=== PATIENT | male | born 1965 | race Caucasian/White ===

== ENCOUNTER 2016-10-21 20:32 | Emergency (ER) | payer MEDICAID ==
[2016-10-21 20:37] VITALS: BP 136/87
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
[2016-10-22] MEDS ORDERED: HYDROCODONE/ACETAMINOPHEN 5-325 MG 6 TAB/DSPK PO PRN (00:02)
== END 2016-10-22 01:12 | disposition home or self-care (01) ==
LOC: ER 20:32
DX: S86.911A Strain of unspecified muscle(s) and tendon(s) at lower leg level, right leg, initial encounter (principal); M25.561 Pain in right knee; W19.XXXA Unspecified fall, initial encounter
CPT/HCPCS: 99283

== ENCOUNTER 2017-04-16 00:16 | Emergency (ER) | payer OTHER, MEDICAID ==
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
[2017-04-16] MEDS ORDERED: MORPHINE SULFATE IR 15 MG TABLET PO ONE (03:01)
[2017-04-16] MEDS ORDERED: LIDOCAINE 5% (700 MG) TRANSDERMAL ADH..PATCH TP ONE (03:01)
[2017-04-16] MEDS ORDERED: IBUPROFEN 600 MG TABLET PO ONE (03:01)
[2017-04-16] MEDS ORDERED: ACETAMINOPHEN 325 MG TABLET PO ONE (03:01)
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
[2017-04-16 04:15] VITALS: BP 120/75
== END 2017-04-16 03:45 | disposition home or self-care (01) ==
LOC: ER 00:16
DX: S49.92XA Unspecified injury of left shoulder and upper arm, initial encounter (principal); M25.512 Pain in left shoulder; V49.40XA Driver injured in collision with unspecified motor vehicles in traffic accident, initial encounter; J45.909 Unspecified asthma, uncomplicated
CPT/HCPCS: 99283

== ENCOUNTER → 2018-06-20 | Outpatient (CLI) | payer MEDICAID ==
--- NOTE | 2018-06-21 19:25 | XCELERA REPORT ---
[address] [address] Transthoracic Echocardiogram Report Name: ANTHONY PEREZ Age: 53 yrs Gender: Male : 1965 Patient Status: Outpatient Patient Location: Study Date: 06/20/2018 03:33 PM Height: 71 in Weight: 345 lb BSA: 2.7 m2 Procedure: A two-dimensional transthoracic echocardiogram with color flow and Doppler was performed. Study Quality: Poor. The study was technically difficult with many images being suboptimal in quality. Reason For Study: EDEMA History: EDEMA. Ordering Physician: OTF STEPHENS Performed By: Brenda Weinstein Interpretation Summary MV and TV not well seen.Probably no MS ,MR,TS or TR.Unable to calculate RVSP due to lack of TR jet. The left ventricle is normal in size. Probably normal wall motion and low normal LVEF of 55%. Doppler measurements suggest normal left ventricular diastolic function The right ventricle is not well visualized secondary to technical limitations Right atrium not well visualized secondary to technical limitations The left atrium is not well visualized secondary to technical limitations Probably normal LA size. There is no pericardial effusion. There is no aortic valve stenosis No aortic regurgitation is present. MV and TV not well seen.Probably no MS ,MR,TS or TR.Unable to calculate RVSP due to lack of TR jet. MMode/2D Measurements & Calculations RVDd: 3.0 cm LVIDd: 5.1 cm FS: 29.5 % Ao root diam: 3.6 cm IVSd: 1.0 cm LVIDs: 3.6 cm EDV(Teich): 122.4 ml Ao root area: 10.4 cm2 LVPWd: 0.96 cm ESV(Teich): 53.6 ml LA dimension: 4.0 cm EF(Teich): 56.2 % Doppler Measurements & Calculations MV E max armando: MV dec time: Ao V2 max: LV V1 max P.8 cm/sec 0.18 sec 143.5 cm/sec 6.7 mmHg MV A max armando: Ao max P.2 mmHg LV V1 max: 71.6 cm/sec 129.8 cm/sec MV E/A: 1.3 TV V2 max: PA V2 max: 112.7 cm/sec 69.1 cm/sec TV max P.1 mmHg PA max P.9 mmHg Left Ventricle The left ventricle is normal in size. There is normal left ventricular wall thickness. Probably normal wall motion and low normal LVEF of 55%. Doppler measurements suggest normal left ventricular diastolic function. Right Ventricle The right ventricle is not well visualized secondary to technical limitations. Atria Right atrium not well visualized secondary to technical limitations. The left atrium is not well visualized secondary to technical limitations. Probably normal LA size. Aortic Valve There is no aortic valve stenosis. No aortic regurgitation is present. Pulmonic Valve The pulmonic valve is not well visualized. Great Vessels The aortic root is not well visualized. Effusions There is no pericardial effusion. : OTF STEPHENS > Ro Pollock
== END ==
LOC: SP 15:09
PROVIDERS: ATTEND Physician Assistant
DX: R60.0 Localized edema (principal)
CPT/HCPCS: 93306

== ENCOUNTER → 2018-10-11 | Outpatient (CLI) | payer SELFPAY ==
[2018-10-11 16:13] LABS: ABSOLUTE EOSINOPHILS # (AUTO) 0.3 10^3/uL (0.0-0.6); ABSOLUTE LYMPHOCYTES (AUTO) 2.1 10^3/uL (0.5-4.7); ABSOLUTE MONOCYTES (AUTO) 0.7 10^3/uL (0.1-1.4); ABSOLUTE NEUT (AUTO) 5.8 10^3/uL (1.7-8.2); BASOPHILS % (AUTO) 0.5 % (0-2); HEMOGLOBIN 15.7 g/dL (13.5-17.0); LYMPHOCYTES % (AUTO) 23.7 % (13-45); MEAN CORPUSCULAR HEMOGLOBIN 30.5 pg (27.0-33.4); MEAN CORPUSCULAR HGB CONC 34.9 g/dL (32.0-36.0); MEAN CORPUSCULAR VOLUME 88 fl (80-97); MONOCYTES % (AUTO) 8.2 % (3-13); PLATELET COUNT 158 10^3/uL (150-450); RED BLOOD COUNT 5.15 10^6/uL (4.35-5.55); RED CELL DISTRIBUTION WIDTH 13.7 % (11.5-14.0); SEGMENTED NEUTROPHILS % (AUTO) 64.6 % (42-78); TOTAL CELLS COUNTED % (AUTO) 100 %
[2018-10-11 16:40] LABS: ALANINE AMINOTRANSFERASE 63 U/L (21-72); ALBUMIN 3.8 g/dL (3.5-5.0); ALKALINE PHOSPHATASE 56 U/L (38-126); ANION GAP 6 (5-19); ASPARTATE AMINO TRANSFERASE 57 U/L (17-59); BILIRUBIN,DIRECT 0.3 mg/dL (0.0-0.4); BILIRUBIN,TOTAL 0.6 mg/dL (0.2-1.3); BLOOD UREA NITROGEN 14 mg/dL (7-20); C-REACTIVE PROTEIN 8.5 mg/L (<10.0); CALCIUM 9.9 mg/dL (8.4-10.2); CARBON DIOXIDE 30 mmol/L (22-30); CHLORIDE 104 mmol/L (98-107); GLUCOSE 165 mg/dL (75-110); POTASSIUM 3.9 mmol/L (3.6-5.0); TOTAL PROTEIN 6.4 g/dL (6.3-8.2)
[2018-10-11 17:01] LABS: ERYTHROCYTE SEDIMENTATION RATE 16 mm/hr (0-20)
== END ==
LOC: WC 15:07
PROVIDERS: ATTEND Surgery
DX: S39.81XD Other specified injuries of abdomen, subsequent encounter (principal); X58.XXXD Exposure to other specified factors, subsequent encounter
CPT/HCPCS: 36415; 80053; 85025; 85652; 86140

== ENCOUNTER 2018-10-22 06:09 | Day surgery (SDC) | payer SELFPAY ==
[~2018-10-22 06:09] MED LIST: CEFAZOLIN 1 GM/D5W RTU 1 GM/50 ML RTUPB IV ONE
[2018-10-22] MEDS ORDERED: ALBUTEROL SULFATE 0.083% NEB 2.5 MG/3 ML AMPUL NEB ONE (06:22)
[2018-10-22] MEDS ORDERED: PROPOFOL INJ 200 MG/20 ML VIAL IV ONE (06:34)
[2018-10-22] MEDS ORDERED: FENTANYL CITRATE INJ/PF 100 MCG/2 ML AMPUL ONE (06:34)
[2018-10-22] MEDS ORDERED: MIDAZOLAM 2 MG/2 ML INJ ONE (06:34)
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
[2018-10-22 06:57] LABS: ABSOLUTE BASOPHILS # (AUTO) 0.1 10^3/uL (0.0-0.2); ABSOLUTE EOSINOPHILS # (AUTO) 0.3 10^3/uL (0.0-0.6); ABSOLUTE LYMPHOCYTES (AUTO) 2.4 10^3/uL (0.5-4.7); ABSOLUTE MONOCYTES (AUTO) 0.7 10^3/uL (0.1-1.4); ABSOLUTE NEUT (AUTO) 3.2 10^3/uL (1.7-8.2); BASOPHILS % (AUTO) 1.2 % (0-2); EOSINOPHILS % (AUTO) 5.1 % (0-6); HEMATOCRIT 45.4 % (37.9-51.0); HEMOGLOBIN 15.6 g/dL (13.5-17.0); LYMPHOCYTES % (AUTO) 35.5 % (13-45); MEAN CORPUSCULAR HEMOGLOBIN 30.3 pg (27.0-33.4); MEAN CORPUSCULAR HGB CONC 34.4 g/dL (32.0-36.0); MEAN CORPUSCULAR VOLUME 88 fl (80-97); MONOCYTES % (AUTO) 10.4 % (3-13); PLATELET COUNT 148 10^3/uL (150-450); RED BLOOD COUNT 5.14 10^6/uL (4.35-5.55); RED CELL DISTRIBUTION WIDTH 13.7 % (11.5-14.0); SEGMENTED NEUTROPHILS % (AUTO) 47.8 % (42-78); TOTAL CELLS COUNTED % (AUTO) 100 %; WHITE BLOOD COUNT 6.8 10^3/uL (4.0-10.5)
[2018-10-22 07:01] LABS: INTERNATIONAL RATION (INR) 0.97; PROTHROMBIN TIME 13.4 SEC (11.4-15.4)
[2018-10-22 07:02] LABS: PARTIAL THROMBOPLASTIN TIME 29.7 SEC (23.5-35.8)
[2018-10-22 07:23] LABS: ANION GAP 6 (5-19); BLOOD UREA NITROGEN 21 mg/dL (7-20); CALCIUM 9.6 mg/dL (8.4-10.2); CARBON DIOXIDE 24 mmol/L (22-30); CHLORIDE 108 mmol/L (98-107); GLUCOSE 140 mg/dL (75-110); POTASSIUM 4.1 mmol/L (3.6-5.0); SODIUM 137.7 mmol/L (137-145)
[2018-10-22] MEDS ORDERED: BUPIVACAINE HCL 0.25 % INJ/PF (2.5 MG/1 ML) 30 ML VIAL ONE (07:30)
[2018-10-22] MEDS ORDERED: SILVER SULFADIAZINE 1% CREAM 25 GM ONE (07:30)
[2018-10-22] MEDS ORDERED: BACITRACIN INJ 50,000 UNIT VIAL ONE (07:31)
[2018-10-22] MEDS ORDERED: COLLAGENASE CLOSTRIDIUM HIST. OINT 30 GM ONE (07:31)
[2018-10-22] MEDS ORDERED: LIDOCAINE 0.5% INJ-PF (5 MG/ML) 50 ML SDV ONE (07:31)
[2018-10-22] MEDS ORDERED: DIPHENHYDRAMINE HCL 50 MG/ML VIAL IV PRN (08:04)
[2018-10-22] MEDS ORDERED: FENTANYL CITRATE INJ/PF 100 MCG/2 ML AMPUL IV PRN ×3 (08:04)
[2018-10-22] MEDS ORDERED: PROMETHAZINE HCL INJ 25 MG/1 ML VIAL IV PRN (08:04)
[2018-10-22] MEDS ORDERED: MEPERIDINE HCL/PF INJ 25 MG/1 ML DISP.SYRIN IV PRN (08:04)
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
[2018-10-22] MEDS ORDERED: LIDOCAINE 0.5% INJ-PF (5 MG/ML) 50 ML SDV SUBCUT PRN (08:26)
[2018-10-22] MEDS ORDERED: LACTATED RINGERS 1000 ML IV PRN (08:26)
--- NOTE | 2018-10-22 08:58 | Discharge Summary ---
Discharge Summary (SDC) - Discharge Final Diagnosis: #1 chronic chronic abdominal wall wound. 2. Diabetes mellitus type 2. 3. Obesity. 4. Asthma. 5. Hypertension. Date of Surgery: 10/22/18 Discharge Date: 10/22/18 Condition: Good Treatment or Instructions: Discharge home [after recovery per ASU criteria]. Diet , diabetic, as tolerated, when fully awake advance as tolerated. Activities within moderation encouraged. Follow up in wound clinic by appointment on Sunday of this week. Call for appointment. Leave wounds [covered], [keep clean and dry, until wound clinic visit on Sunday. Hold of on school/work [until evaluation in office]. Meds per med rec. Percocet. May shower [in 48 hrs], [try to keep operated area as dry as possible]. Prescriptions: Oxycodone HCl/Acetaminophen [Percocet 5-325 mg Tablet] 1 tab PO ASDIR PRN #10 tab PRN Reason: Referrals: OTF FREGOSO PA-C [Primary Care Provider] - Discharge Diet: Other (Comments) - Diabetic. Respiratory Treatments at Home: Deep Breathing/Coughing Discharge Activity: Activity As Tolerated Report the Following to Your Physician Immediately: Shortness of Breath, Unusual Bleeding
--- NOTE | 2018-10-22 09:01 | Operative Report ---
Operative Report DATE OF SURGERY: 10/22/18 PREOPERATIVE DIAGNOSIS: #1 chronic chronic abdominal wall wound. 2. Diabetes mellitus type 2. 3. Obesity. 4. Asthma. 5. Hypertension. POSTOPERATIVE DIAGNOSIS: #1 chronic chronic abdominal wall wound. 2. Diabetes mellitus type 2. 3. Obesity. 4. Asthma. 5. Hypertension. OPERATION: Debridement of abdominal wall wound. SURGEON: DEE WALDEN TRAVEL REGISTERED NURSE ICU: None. ANESTHESIA: LMAC TISSUE REMOVED OR ALTERED: Infected, necrotic subcutaneous tissue and skin. Sent for culture and for pathology. COMPLICATIONS: None. ESTIMATED BLOOD LOSS: 5 mL. INTRAOPERATIVE FINDINGS: Of an open wound to both 3 cm across. Turned out to be quite deep in the subcutaneous tissues about 3 cm. A few satellite apparently trivial areas. Affected tissue was removed. Remaining tissues look viable and healthy. Considerable amount of adiposity in the depths of the wound. PROCEDURE: PROCEDURE: The abdomen was prepared with [Betadine] and draped out with sterile linen. After the"universal time-out", in which it was confirmed that the patient [did receive antibiotic], the procedure commenced. The patient was appropriately anesthetized. The wound was probed. Cultures were now taken and sent. The wound was debrided of non viable tissue using cautery with removal of loose debris, as well. The wound was irrigated with [Peroxide] The wound was now irrigated with saline and [Surgicel] placed within it, dressed with [Kerlix] and the procedure concluded.
--- NOTE | 2018-10-22 10:16 | EKG REPORT ---
SEVERITY:- ABNORMAL ECG - SINUS RHYTHM IVCD, CONSIDER ATYPICAL RBBB : Confirmed by: Ro Pollock MD 22-Oct-2018 10:15:29
[2018-10-22 10:32] VITALS: BP 136/64
== END 2018-10-22 10:30 | disposition home or self-care (01) ==
LOC: OROUT 06:09
PROVIDERS: ATTEND Surgery
DX: S31.109A Unspecified open wound of abdominal wall, unspecified quadrant without penetration into peritoneal cavity, initial encounter (principal); X58.XXXA Exposure to other specified factors, initial encounter; I10 Essential (primary) hypertension; E11.9 Type 2 diabetes mellitus without complications; J44.9 Chronic obstructive pulmonary disease, unspecified; E66.01 Morbid (severe) obesity due to excess calories; F17.210 Nicotine dependence, cigarettes, uncomplicated; Z01.818 Encounter for other preprocedural examination; Z79.899 Other long term (current) drug therapy; Z79.84 Long term (current) use of oral hypoglycemic drugs; Z68.42 Body mass index [BMI] 45.0-49.9, adult
CPT/HCPCS: 36415; 87070; 87205; 85025; 85610; 85730; 87075; 87077; 80048; 88342 ×2; 88305 ×2; 88312 ×2; 71045; 93005; 93010; 11042; J2250; J3490 ×2; J0690; J3010; J2704; 400

== ENCOUNTER 2019-06-30 23:26 | Emergency (ER) | payer MEDICAID ==
[2019-07-01 01:19] LABS: A TYPE INFLUENZA AG NEGATIVE (NEGATIVE); B INFLUENZA AG NEGATIVE (NEGATIVE)
--- NOTE | 2019-07-01 02:21 | ER Document Report ---
ED Flu Like - General Chief Complaint: Flu Symptoms Stated Complaint: BODY ACHES,FEVER Time Seen by Provider: 07/01/19 02:07 Primary Care Provider: OTF FREGOSO PA-C [Primary Care Provider] - Follow up as needed Notes: Patient is a 54-year-old male that comes emergency department for chief complaint of 4 days of worsening flulike symptoms. He states he has had worsening cough, chills, body aches, and congestion. He denies sore throat, vomiting, chest pain, diarrhea. He states he has had multiple sick contacts. He smokes but denies history of COPD or asthma. Remaining medical history is hypertension, degenerative disc disease, obesity. TRAVEL OUTSIDE OF THE [place] IN LAST 30 DAYS: No - Related Data Allergies/Adverse Reactions: No Known Allergies Allergy (Unverified 10/22/18 06:29) Past Medical History - General Information source: Patient - Social History Smoking Status: Current Every Day Smoker Smoking Education Provided: Yes - <3 min Frequency of alcohol use: None Drug Abuse: None Lives with: Family Family History: CAD, Hyperlipidemia, Hypertension, Malignancy Patient has suicidal ideation: No Patient has homicidal ideation: No - Past Medical History Cardiac Medical History: Reports: Hx Hypertension Denies: Hx Coronary Artery Disease, Hx Heart Attack Pulmonary Medical History: Reports: Hx Asthma, Hx COPD Denies: Hx Bronchitis, Hx Pneumonia Neurological Medical History: Denies: Hx Cerebrovascular Accident, Hx Seizures Renal/ Medical History: Reports: Hx Kidney Stones. Denies: Hx Peritoneal Dialysis Musculoskeletal Medical History: Reports Hx Arthritis - knees, Reports Hx Musculoskeletal Trauma Past Surgical History: Reports: Hx Cholecystectomy, Hx Orthopedic Surgery - knee surgery Review of Systems - Review of Systems Constitutional: See HPI EENT: See HPI Cardiovascular: No symptoms reported Respiratory: See HPI Gastrointestinal: No symptoms reported Genitourinary: No symptoms reported Male Genitourinary: No symptoms reported Musculoskeletal: No symptoms reported Skin: No symptoms reported Hematologic/Lymphatic: No symptoms reported Neurological/Psychological: No symptoms reported Physical Exam - Vital signs Vitals: Temp Pulse Resp BP Pulse Ox 98.5 F 80 20 159/72 H 95 06/30/19 23:59 06/30/19 23:59 06/30/19 23:59 06/30/19 23:59 06/30/19 23:59 - Notes Notes: GENERAL: Alert, interacts well. No acute distress. HEAD: Normocephalic, atraumatic. EYES: Pupils equal, round, and reactive to light. Extraocular movements intact. ENT: Oral mucosa moist, tongue midline. Oropharynx unremarkable. Airway patent. Congested nasal passages, mildly tender over the maxillary and frontal sinuses bilaterally without severe tenderness. No purulent drainage noted. No nasal septal hematoma, TM's intact. NECK: Full range of motion. Supple. Trachea midline. LUNGS: Clear to auscultation bilaterally, no wheezes, rales, or rhonchi. No respiratory distress. Occasional mild congested cough. No labored breathing. HEART: Regular rate and rhythm. No murmur ABDOMEN: Soft, non-tender. Non-distended. Bowel sounds present in all 4 quadrants. GENITOURINARY: Deferred EXTREMITIES: Moves all 4 extremities spontaneously. No edema, normal radial and dorsalis pedis pulses bilaterally. No cyanosis. BACK: no cervical, thoracic, lumbar midline tenderness. No saddle anesthesia, normal distal neurovascular exam. Moves all extremities in full range of motion. NEUROLOGICAL: Alert and oriented x3. Normal speech. Cranial nerves II through XII grossly intact. PSYCH: Normal affect, normal mood. SKIN: Warm, dry, normal turgor. No rashes or lesions noted. Course - Re-evaluation Re-evalutation: Patient with sinus congestion and tenderness, productive cough reportedly but congested cough only on exam. No signs of respiratory distress. No hypoxia. No fever. Influenza negative, chest x-ray negative for acute findings. Discussed with patient. Because of several days of progressive worsening productive cough, developing sinus tenderness we decided to treat the patient with antibiotics for sinusitis and coverage for pneumonia. Because of lack of wheezing, hypoxia, difficulty breathing, or requirement of breathing treatments patient was not placed on steroids at this time. Discussed close primary care follow-up, smoking cessation, and return precautions. Patient states understanding and agreement with plan. - Vital Signs Vital signs: Temp Pulse Resp BP Pulse Ox 98.1 F 81 20 148/91 H 95 07/01/19 03:46 07/01/19 03:46 07/01/19 03:46 07/01/19 03:46 07/01/19 03:46 Discharge - Discharge Clinical Impression: Cough, Body aches Sinusitis Qualifiers: Sinusitis location: unspecified location Chronicity: acute Recurrence: non- recurrent Qualified Code(s): J01.90 - Acute sinusitis, unspecified Condition: Stable Disposition: HOME, SELF-CARE Additional Instructions: Your chest x-ray does not show pneumonia, your influenza testing is negative. Your evaluation indicates probably initially a viral upper respiratory infection with developing sinus infection. Take antibiotics as prescribed, nasal spray as prescribed, Tessalon for cough if needed, along with [id number] antihistamines and pain medication. Rest, drink plenty of fluids. Follow-up with primary care. Stop smoking. Return if you worsen including rapid or labored breathing, spiking fever, vomiting, or any other concerning or worsening symptoms. Prescriptions: Benzonatate [Tessalon [place] 100 mg Capsule] 100 mg PO Q8HP PRN #20 cap PRN Reason: Fluticasone Propionate [Flonase Nasal [place] 50 Mcg/[place] 16 gm] 2 sprays NASL Q12 #1 inhaler Azithromycin [Zithromax 250 mg Tablet] 250 mg PO ASDIR PRN #4 tablet PRN Reason: Forms: Smoking Cessation Education Referrals: OTF FREGOSO PA-C [Primary Care Provider] - Follow up as needed
--- NOTE | 2019-07-01 03:33 | RADIOLOGY REPORT (SQ) ---
EXAM DESCRIPTION: X-ray two view chest. CLINICAL HISTORY: 54 years Male, worsening productive cough, chills COMPARISON: 10/22/2018 TECHNIQUE: PA and Lateral views of the chest performed on Date and time FINDINGS: The lungs are well expanded and are clear. The costophrenic sulci are clear. There is no evidence of a pneumothorax. The cardiac silhouette is normal in size. The mediastinal contours are normal. No acute osseous abnormalities are identified. No focal soft tissue abnormalities are identified. IMPRESSION: No definite acute intrathoracic disease.
[2019-07-01] MEDS ORDERED: AZITHROMYCIN 250 MG TABLET PO ONE (03:37)
[2019-07-01 03:44] VITALS: BP 148/91
== END 2019-07-01 03:47 | disposition home or self-care (01) ==
LOC: ER 23:26
DX: J01.90 Acute sinusitis, unspecified (principal); R05 Cough; M79.10 Myalgia, unspecified site; R50.9 Fever, unspecified; R09.81 Nasal congestion; F17.200 Nicotine dependence, unspecified, uncomplicated; I10 Essential (primary) hypertension; J44.9 Chronic obstructive pulmonary disease, unspecified
CPT/HCPCS: 99406; 99283; 87804; 71046; Q0144